=== PATIENT | female | born 1985 | race Caucasian/White ===

== ENCOUNTER → 2016-09-09 | Outpatient (CLI) | payer OTHER ==
[2016-09-09 17:26] LABS: Bilirubin, Delta 0.3 mg/dL (0.0-0.2); Total Bilirubin 0.6 mg/dL (0.2-1.3); Total Protein 7.6 g/dL (6.3-8.2)
== END | disposition home or self-care (01) ==
LOC: LABWHC1 16:13
PROVIDERS: ATTEND Family Medicine
DX: F19.10 Other psychoactive substance abuse, uncomplicated (principal); Z51.81 Encounter for therapeutic drug level monitoring
CPT/HCPCS: 36415; 80076

== ENCOUNTER 2016-10-09 14:37 | Emergency (ER) | payer SELFPAY ==
[2016-10-09 16:43] VITALS: RESP 18
--- NOTE | 2016-10-09 17:02 | ED ---
URI HPI - General Chief Complaint: Upper Respiratory Infection Stated Complaint: flu symptoms Time Seen by Provider: 10/09/16 16:39 Source: patient, RN notes reviewed Mode of arrival: ambulatory Limitations: no limitations - History of Present Illness Initial Comments: Patient is a 31-year-old female with chief complaint of fever and upper respiratory congestion for approximately 3 days. She reports that she has recently placed on antibiotics for a MRSA infection on her face. She reports that she's had a multiple antibiotics and feels as this clearing up. She was evident second look at it. She reports that she is a smoker and does have a mild cough that is nonproductive. She put she's had fever but is taking Motrin for the past few days. She deines nausea, vomiting, chest pain, shortness of breath, dysuria, hematuria, chagnes in stools. - Related Data Previous Rx's Medication Instructions Recorded Acetaminophen Tab [Tylenol Tab] 650 mg PO Q6H #20 tablet 10/09/16 Allergies Allergy/AdvReac Type Severity Reaction Status Date / Time Penicillins AdvReac Mild Rash/Hives Verified 10/09/16 15:06 sulfamethoxazole AdvReac Unknown Verified 10/09/16 15:06 [From Bactrim] trimethoprim [From Bactrim] AdvReac Unknown Verified 10/09/16 15:06 Review of Systems ROS Statement: Those systems with pertinent positive or pertinent negative responses have been documented in the HPI. ROS Other: All systems not noted in ROS Statement are negative. Past Medical History Past Medical History: Liver Disease Additional Past Medical History / Comment(s): Hep C, previous IVDA History of Any Multi-Drug Resistant Organisms: MRSA Date of last positivie culture/infection: 2017 MDRO Source:: face Past Surgical History: Section, Cholecystectomy Past Psychological History: No Psychological Hx Reported Smoking Status: Current every day smoker Past Alcohol Use History: None Reported Additional Past Alcohol Use History / Comment(s): Patient is a smoker of a half a pack per day for 10 years. She denies any alcohol use. 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 Patient has 2 children with no major medical problems. Past Drug Use History: None Reported, Heroin - Past Family History Mother Additional Family Medical History / Comment(s): Mother is alive at age 58 with history of depression. Father Additional Family Medical History / Comment(s): Father is alive at age 58 with history of osteoarthritis. Patient has one sister that is healthy with no major medical problems. Patient does not have any brothers. General Exam - General Exam Comments Initial Comments: 31 year old female, patient appears to be congested and mildly ill. Limitations: no limitations General appearance: alert, in no apparent distress Head exam: Present: atraumatic, normocephalic, normal inspection Eye exam: Present: normal appearance, PERRL, EOMI. Absent: scleral icterus, conjunctival injection, periorbital swelling ENT exam: Present: normal exam, mucous membranes moist Neck exam: Present: normal inspection. Absent: tenderness, meningismus, lymphadenopathy Respiratory exam: Present: normal lung sounds bilaterally. Absent: respiratory distress, wheezes, rales, rhonchi, stridor Cardiovascular Exam: Present: regular rate, normal rhythm, normal heart sounds. Absent: systolic murmur, diastolic murmur, rubs, gallop, clicks GI/Abdominal exam: Present: soft, normal bowel sounds. Absent: distended, tenderness, guarding, rebound, rigid Extremities exam: Present: normal inspection, full ROM, normal capillary refill. Absent: tenderness, pedal edema, joint swelling, calf tenderness Back exam: Present: normal inspection Neurological exam: Present: alert, oriented X3, CN II-XII intact Psychiatric exam: Present: normal affect, normal mood Skin exam: Present: warm, dry, intact, normal color. Absent: rash Course Vital Signs 10/09/16 10/09/16 10/09/16 15:01 16:41 17:55 Temperature 98.1 F 98.3 F 99.0 F Pulse Rate 91 84 96 Respiratory 16 18 18 Rate Blood Pressure 121/58 129/74 132/75 O2 Sat by Pulse 100 99 99 Oximetry Medical Decision Making - Medical Decision Making Patient is a 31-year-old female with chief complaint of fever and upper respiratory congestion for approximately 3 days. She reports that she has recently placed on antibiotics for a MRSA infection on her face. She reports that she's had a multiple antibiotics and feels as this clearing up. She was evident second look at it. She reports that she is a smoker and does have a mild cough that is nonproductive. She put she's had fever but is taking Motrin for the past few days. Patient tests positive for influenza A. Patient advised she is not a candidate for tamiflu due to duration of symptoms. Patient advised to continue motrin and tyelnol and to follow up if it persists after 4 more days. - Lab Data Lab Results 10/09/16 Range/Units 16:44 Influenza Type A RNA Detected H (Not Detectd) Influenza Type B (PCR) Not Detected (Not Detectd) Disposition Clinical Impression: Influenza A Disposition: HOME SELF-CARE Condition: Good Instructions: Influenza (ED) Additional Instructions: Motrin and Tylenol with Pain and fever, and follow up with PCP if symptoms continue to persist. Return to the emergency department if any alarming signs or symptoms persist. Prescriptions: Acetaminophen Tab [Tylenol Tab] 650 mg PO Q6H #20 tablet Referrals: Ibis Albarran MD [Primary Care Provider] - 1-2 days Time of Disposition: 17:37
[2016-10-09] MEDS: ONDANSETRON 4 MG ODT STARTER PACK 2 TAB BTL PO STA (17:07)
[2016-10-09 17:56] VITALS: BP 132/75; PULSE 96; TEMP 99
== END 2016-10-09 17:56 | disposition home or self-care (01) ==
LOC: EC 14:37
DX: J10.1 Influenza due to other identified influenza virus with other respiratory manifestations (principal); F17.200 Nicotine dependence, unspecified, uncomplicated; Z88.0 Allergy status to penicillin; Z88.2 Allergy status to sulfonamides
CPT/HCPCS: 87502; 99283; S0119

== ENCOUNTER 2016-11-11 21:42 | Emergency (ER) | payer OTHER ==
--- NOTE | 2016-11-11 23:01 | ED ---
Psych HPI - General Source: patient, RN notes reviewed Mode of arrival: ambulatory <Britni Pickard - Last Filed: 11/12/16 04:21> <Pedro Pablo Marsh - Last Filed: 11/12/16 06:39> - General Chief Complaint: Psychiatric Symptoms Stated Complaint: Mental Health Time Seen by Provider: 11/11/16 22:20 - History of Present Illness Initial Comments: Patient's 31-year-old female presents as room for psychiatric evaluation. Patient was brought in by police. Patient was wandering around [place] with altered mental status. Patient has a history of heroin abuse. Patient is alert but is not cooperative. Patient unable to give a history. Patient states that she shot up "drugs" but will not state what she used. Patient was petitioned by [employer]ap[employer] and arresting gear officer. (Britni Pickard) - Related Data Previous Rx's Medication Instructions Recorded Acetaminophen Tab [Tylenol Tab] 650 mg PO Q6H #20 tablet 10/09/16 Allergies Allergy/AdvReac Type Severity Reaction Status Date / Time Penicillins AdvReac Mild Rash/Hives Verified 10/09/16 15:06 sulfamethoxazole AdvReac Unknown Verified 10/09/16 15:06 [From Bactrim] trimethoprim [From Bactrim] AdvReac Unknown Verified 10/09/16 15:06 Review of Systems ROS Other: All systems not noted in ROS Statement are negative. <Britni Pickard - Last Filed: 11/12/16 04:21> ROS Other: All systems not noted in ROS Statement are negative. <Pedro Pablo Marsh - Last Filed: 11/12/16 06:39> ROS Statement: Those systems with pertinent positive or pertinent negative responses have been documented in the HPI. Past Medical History Past Medical History: Liver Disease Additional Past Medical History / Comment(s): Hep C, previous IVDA History of Any Multi-Drug Resistant Organisms: MRSA Date of last positivie culture/infection: 2017 MDRO Source:: face Past Surgical History: Section, Cholecystectomy Past Psychological History: No Psychological Hx Reported Smoking Status: Current every day smoker Past Alcohol Use History: None Reported Additional Past Alcohol Use History / Comment(s): Patient is a smoker of a half a pack per day for 10 years. She denies any alcohol use. She does have history of heroin abuse and addiction and has been at [facility] 4 times in the past. Patient has 2 children with no major medical problems. Past Drug Use History: None Reported, Heroin - Past Family History Mother Additional Family Medical History / Comment(s): Mother is alive at age 58 with history of depression. Father Additional Family Medical History / Comment(s): Father is alive at age 58 with history of osteoarthritis. Patient has one sister that is healthy with no major medical problems. Patient does not have any brothers. <Britni Pickard - Last Filed: 11/12/16 04:21> General Exam Limitations: no limitations General appearance: alert Head exam: Present: atraumatic, normocephalic, normal inspection Eye exam: Present: normal appearance ENT exam: Present: normal exam Neck exam: Present: normal inspection Respiratory exam: Present: normal lung sounds bilaterally. Absent: respiratory distress Cardiovascular Exam: Present: regular rate, normal rhythm, normal heart sounds Extremities exam: Present: normal inspection Back exam: Present: normal inspection Neurological exam: Present: alert, oriented X3, CN II-XII intact, normal gait Psychiatric exam: Present: normal affect, normal mood Skin exam: Present: warm, dry, other (Multiple track spence over bilateral arms due to IV drug abuse). Absent: rash <Britni Pickard - Last Filed: 11/12/16 04:21> <Pedro Pablo Marsh - Last Filed: 11/12/16 06:39> - General Exam Comments Initial Comments: Sleeping in exam room, no distress (Britni Pickard) Course <Britni Pickard - Last Filed: 11/12/16 04:21> <Pedro Pablo Marsh - Last Filed: 11/12/16 06:39> Vital Signs 11/11/16 11/12/16 22:09 04:00 Temperature 98.0 F 98.2 F Pulse Rate 105 H 81 Respiratory 18 16 Rate Blood Pressure 138/83 130/59 O2 Sat by Pulse 100 98 Oximetry - Reevaluation(s) Reevaluation #1: 11/12/16 06:38 The patient was evaluated by psychiatric service he currently is at risk to herself or anyone else he'll be discharged (Pedro Pablo Marsh) Medical Decision Making - Lab Data Result diagrams: 11/11/16 23:08 11/11/16 23:08 <Britni Pickard - Last Filed: 11/12/16 04:21> - Lab Data Result diagrams: 11/11/16 23:08 11/11/16 23:08 <Pedro Pablo Marsh - Last Filed: 11/12/16 06:39> - Medical Decision Making Patient is a 31-year-old female presents emergency room for psychiatric evaluation. Patient petitioned. Patient is medically cleared to be evaluated by psych. Case discussed and passed on to Dr. Marsh at 4 AM. (Britni Pickard ) - Lab Data Lab Results 11/11/16 11/11/16 11/11/16 Range/Units 23:08 23:08 23:08 WBC 7.3 (3.8-10.6) k/uL RBC 4.42 (3.80-5.40) m/uL Hgb 13.8 (11.4-16.0) gm/dL Hct 38.3 (34.0-46.0) % MCV 86.5 (80.0-100.0) fL MCH 31.1 (25.0-35.0) pg MCHC 36.0 (31.0-37.0) g/dL RDW 12.9 (11.5-15.5) % Plt Count 179 (150-450) k/uL Neutrophils % 73 % Lymphocytes % 18 % Monocytes % 5 % Eosinophils % 2 % Basophils % 1 % Neutrophils # 5.3 (1.3-7.7) k/uL Lymphocytes # 1.3 (1.0-4.8) k/uL Monocytes # 0.3 (0-1.0) k/uL Eosinophils # 0.1 (0-0.7) k/uL Basophils # 0.1 (0-0.2) k/uL Sodium (137-145) mmol/L Potassium (3.5-5.1) mmol/L Chloride (98-107) mmol/L Carbon Dioxide (22-30) mmol/L Anion Gap mmol/L BUN (7-17) mg/dL Creatinine (0.52-1.04) mg/dL Est GFR (MDRD) Af Amer (>60 ml/min/1.73 sqM) Est GFR (MDRD) Non-Af (>60 ml/min/1.73 sqM) Glucose (74-99) mg/dL Calcium (8.4-10.2) mg/dL Total Bilirubin (0.2-1.3) mg/dL AST (14-36) U/L ALT (9-52) U/L Alkaline Phosphatase (38-126) U/L Total Protein (6.3-8.2) g/dL Albumin (3.5-5.0) g/dL Urine HCG, Qual Not Detected (Not Detectd) Salicylates mg/dL Urine Opiates Screen Detected H (NotDetected) Ur Oxycodone Screen Not Detected (NotDetected) Urine Methadone Screen Not Detected (NotDetected) Ur Propoxyphene Screen Not Detected (NotDetected) Acetaminophen ug/mL Ur Barbiturates Screen Not Detected (NotDetected) U Tricyclic Antidepress Not Detected (NotDetected) Ur Phencyclidine Scrn Not Detected (NotDetected) Ur Amphetamines Screen Detected H (NotDetected) U Methamphetamines Scrn Detected H (NotDetected) U Benzodiazepines Scrn Detected H (NotDetected) Urine Cocaine Screen Detected H (NotDetected) U Marijuana (THC) Screen Not Detected (NotDetected) 11/11/16 Range/Units 23:08 WBC (3.8-10.6) k/uL RBC (3.80-5.40) m/uL Hgb (11.4-16.0) gm/dL Hct (34.0-46.0) % MCV (80.0-100.0) fL MCH (25.0-35.0) pg MCHC (31.0-37.0) g/dL RDW (11.5-15.5) % Plt Count (150-450) k/uL Neutrophils % % Lymphocytes % % Monocytes % % Eosinophils % % Basophils % % Neutrophils # (1.3-7.7) k/uL Lymphocytes # (1.0-4.8) k/uL Monocytes # (0-1.0) k/uL Eosinophils # (0-0.7) k/uL Basophils # (0-0.2) k/uL Sodium 139 (137-145) mmol/L Potassium 4.3 (3.5-5.1) mmol/L Chloride 101 (98-107) mmol/L Carbon Dioxide 26 (22-30) mmol/L Anion Gap 12 mmol/L BUN 13 (7-17) mg/dL Creatinine 0.80 (0.52-1.04) mg/dL Est GFR (MDRD) Af Amer >60 (>60 ml/min/1.73 sqM) Est GFR (MDRD) Non-Af >60 (>60 ml/min/1.73 sqM) Glucose 90 (74-99) mg/dL Calcium 9.8 (8.4-10.2) mg/dL Total Bilirubin 1.0 (0.2-1.3) mg/dL AST 69 H (14-36) U/L ALT 110 H (9-52) U/L Alkaline Phosphatase 155 H (38-126) U/L Total Protein 7.2 (6.3-8.2) g/dL Albumin 4.3 (3.5-5.0) g/dL Urine HCG, Qual (Not Detectd) Salicylates <1.0 mg/dL Urine Opiates Screen (NotDetected) Ur Oxycodone Screen (NotDetected) Urine Methadone Screen (NotDetected) Ur Propoxyphene Screen (NotDetected) Acetaminophen <10.0 ug/mL Ur Barbiturates Screen (NotDetected) U Tricyclic Antidepress (NotDetected) Ur Phencyclidine Scrn (NotDetected) Ur Amphetamines Screen (NotDetected) U Methamphetamines Scrn (NotDetected) U Benzodiazepines Scrn (NotDetected) Urine Cocaine Screen (NotDetected) U Marijuana (THC) Screen (NotDetected) Disposition <Britni Pickard - Last Filed: 11/12/16 04:21> <Pedro Pablo Marsh - Last Filed: 11/12/16 06:39> Clinical Impression: Adjustment reaction, Drug abuse Disposition: HOME SELF-CARE Condition: Good Instructions: Polysubstance Abuse (ED), Anxiety (ED)
[2016-11-11 23:26] LABS: Basophils # (A) 0.1 k/uL (0-0.2); Basophils % (A) 1 %; CH 31.7; CHCM 36.8; Eosinophils # (A) 0.1 k/uL (0-0.7); Eosinophils % (A) 2 %; HCT 38.3 % (34.0-46.0); HDW 3.08; HGB 13.8 gm/dL (11.4-16.0); Luc # (Auto) 0.17; Luc % (Auto) 2; Lymphocytes # (A) 1.3 k/uL (1.0-4.8); Lymphocytes % (A) 18 %; MCH 31.1 pg (25.0-35.0); MCV 86.5 fL (80.0-100.0); Mean Platelet Volume 7.5; Monocytes # (A) 0.3 k/uL (0-1.0); Monocytes % (A) 5 %; Neutrophils # (A) 5.3 k/uL (1.3-7.7); Neutrophils % (A) 73 %; RBC 4.42 m/uL (3.80-5.40); RDW 12.9 % (11.5-15.5); WBC 7.3 k/uL (3.8-10.6); WBC (Perox) 7.35
[2016-11-11 23:36] LABS: ALT 110 U/L (9-52); AST 69 U/L (14-36); Acetaminophen <10.0 ug/mL; Alkaline Phosphatase 155 U/L (38-126); Anion Gap 12 mmol/L; Blood Urea Nitrogen 13 mg/dL (7-17); Calcium 9.8 mg/dL (8.4-10.2); Carbon Dioxide 26 mmol/L (22-30); Chloride 101 mmol/L (98-107); Glucose 90 mg/dL (74-99); Non-African American GFR(MDRD) >60 (>60 ml/min/1.73 sqM); Potassium 4.3 mmol/L (3.5-5.1); Salicylate <1.0 mg/dL; Sodium 139 mmol/L (137-145); Total Protein 7.2 g/dL (6.3-8.2)
[2016-11-12 04:00] VITALS: RESP 16
[2016-11-12 06:43] VITALS: BP 135/56; PULSE 86; TEMP 97.8
== END 2016-11-12 06:56 | disposition home or self-care (01) ==
LOC: EC 21:42
DX: F43.20 Adjustment disorder, unspecified (principal); F11.10 Opioid abuse, uncomplicated; F17.200 Nicotine dependence, unspecified, uncomplicated; Z88.0 Allergy status to penicillin; Z88.2 Allergy status to sulfonamides
CPT/HCPCS: 36415; 80053; 80306; 81025; 82075; 83520; 85025; 99285

== ENCOUNTER 2016-11-23 12:45 | Emergency (ER) | payer OTHER ==
[2016-11-23 12:54] VITALS: BP 118/66; PULSE 75; RESP 18; TEMP 97.6
[2016-11-23] MEDS ORDERED: DIPH,PERTUS(ACELL)TETVAC-LF 0.5 ML VIAL IM ONE (13:19)
--- NOTE | 2016-11-23 13:20 | ED ---
Skin/Abscess/FB HPI - General Chief complaint: Extremity Problem,Nontraumatic Stated complaint: Sliver Time Seen by Provider: 11/23/16 12:56 Source: patient Mode of arrival: ambulatory Limitations: no limitations - History of Present Illness Initial comments: Patient is a 31-year-old left-handed female presenting to the emergency department with complaints of right index finger pain and swelling. Patient states that 4 days ago she was working with a metal screen and believes she might have retained a piece of metal or possible fluid to the tip of her right index finger. Patient describes pain as throbbing, currently rated 6 out of 10. Patient denies chills, fevers, nausea, vomiting, shortness of breath, chest pain, or abdominal pain. Patient denies numbness or tingling. Patient states she has been picking and cutting at the site of entry with a nail clipper but has been unable to remove the sliver. Patient states she did get some pus out of the wound when she tried to drain it. MD complaint: foreign body Onset/Timin -: days(s) Tetanus Up to Date: no Location: R hand (Tip of right second digit) Severity: moderate Severity scale (1-10): 6 Quality: constant, other (Throbbing) Consistency: constant Improves with: none Worsens with: palpation Context: none Associated symptoms: denies other symptoms Treatments Prior to Arrival: attempted to drain pus at home, other (Soaking the finger in warm water) - Related Data Previous Rx's Medication Instructions Recorded Acetaminophen Tab [Tylenol Tab] 650 mg PO Q6H #20 tablet 10/09/16 Allergies Allergy/AdvReac Type Severity Reaction Status Date / Time Penicillins AdvReac Mild Rash/Hives Verified 11/23/16 12:54 sulfamethoxazole AdvReac Unknown Verified 11/23/16 12:54 [From Bactrim] trimethoprim [From Bactrim] AdvReac Unknown Verified 11/23/16 12:54 Review of Systems ROS Statement: Those systems with pertinent positive or pertinent negative responses have been documented in the HPI. ROS Other: All systems not noted in ROS Statement are negative. Past Medical History Past Medical History: Liver Disease Additional Past Medical History / Comment(s): Hep C, previous IVDA History of Any Multi-Drug Resistant Organisms: MRSA Date of last positivie culture/infection: 2017 MDRO Source:: face Past Surgical History: Section, Cholecystectomy Past Psychological History: No Psychological Hx Reported Smoking Status: Current every day smoker Past Alcohol Use History: None Reported Additional Past Alcohol Use History / Comment(s): Patient is a smoker of a half a pack per day for 10 years. She denies any alcohol use. She does have history of heroin abuse and addiction and has been at [facility] 4 times in the past. Patient has 2 children with no major medical problems. Past Drug Use History: Heroin - Past Family History Mother Additional Family Medical History / Comment(s): Mother is alive at age 58 with history of depression. Father Additional Family Medical History / Comment(s): Father is alive at age 58 with history of osteoarthritis. Patient has one sister that is healthy with no major medical problems. Patient does not have any brothers. General Exam - General Exam Comments Initial Comments: GENERAL: Pt awake and alert, well-appearing, well-nourished, and in no acute distress. HEAD: Atraumatic, normocephalic. EYES: Pupils equal, round, and reactive to light, sclera anicteric, conjunctiva are normal. ENT: Moist mucous membranes. Tongue smooth, pink, no lesions, protrudes in midline. NECK:Supple without lymphadenopathy or JVD. LUNGS: Breath sounds clear to auscultation bilaterally. No wheezes, rales, or rhonchi. HEART: Heart S1, S2, no S3 or S4. Regular rate and rhythm. No murmurs, rubs or gallops. ABDOMEN: Soft, nontender, nondistended, normoactive bowel sounds. No guarding, no rebound. No masses or organomegaly appreciated. EXTREMITIES: 2+ peripheral pulses. No edema. No calf tenderness. NEUROLOGICAL: Pt oriented x 3. No focal deficits noted. Strength and sensation grossly intact. PSYCH: Normal mood, normal affect. SKIN: Warm, dry. Tip of right index finger tender to palpation with mild erythema, no drainage noted. Limitations: no limitations Course Vital Signs 11/23/16 12:50 Temperature 97.6 F Pulse Rate 75 Respiratory 18 Rate Blood Pressure 118/66 O2 Sat by Pulse 99 Oximetry Medical Decision Making - Medical Decision Making Patient is a 31-year-old male presenting to the emergency department with complaints of possible foreign body to her right index finger. X-ray of right index finger without evidence of foreign body, fracture, or dislocation. Patient decided to leave AGAINST MEDICAL ADVICE before further treatment was ordered. - Radiology Data Radiology results: report reviewed X-ray right index finger: No acute fracture or dislocation present. Joint spaces are preserved. Overlying soft tissue is unremarkable. No radiodense foreign body is seen. Disposition Clinical Impression: Localized soft tissue swelling Disposition: Left Against Medical Advice Referrals: None,Stated [Primary Care Provider] - 1-2 days Time of Disposition: 14:00
--- NOTE | 2016-11-23 13:35 | XR ---
EXAMINATION TYPE: XR finger RT DATE OF EXAM: 11/23/2016 1:27 PM COMPARISON: NONE HISTORY: Right index finger injury with pain. Possible foreign body. TECHNIQUE: 3 views right second finger are obtained. FINDINGS: No acute fracture or dislocation is present. The joint spaces are preserved. Overlying soft tissue is unremarkable. No radiodense foreign body is seen. IMPRESSION: No acute fracture or dislocation is evident.
== END 2016-11-23 13:30 | disposition left against medical advice (07) ==
LOC: EC 12:45
DX: R22.31 Localized swelling, mass and lump, right upper limb (principal); F17.200 Nicotine dependence, unspecified, uncomplicated; Z53.29 Procedure and treatment not carried out because of patient's decision for other reasons; Z88.0 Allergy status to penicillin; Z88.2 Allergy status to sulfonamides
CPT/HCPCS: 99283